=== PATIENT | male | born 1955 | race Caucasian/White ===

== ENCOUNTER 2019-07-01 20:58 | Emergency (ER) | payer MEDICARE, OTHER ==
[~2019-07-01] VITALS: Ht 180.3 cm; Wt 106.8 kg
[~2019-07-01 20:58] MED LIST: ARIP5TAB8 PO; ASPI-1111 PO; CYAN100T3 PO; ESCI10TA PO; FERR-89 PO; MULT-29 PO
[2019-07-01] MEDS ORDERED: ALPR0.5T8 PO (22:05)
[2019-07-01] MEDS ORDERED: LISI-662 PO (22:05)
[2019-07-01] MEDS ORDERED: FAMO20 PO (22:05)
[2019-07-01] MEDS ORDERED: HYDR-1475 PO (22:05)
[2019-07-01] MEDS ORDERED: OXYC10TA59 PO (22:05)
[2019-07-01] MEDS ORDERED: FLUO-191 PO (22:05)
[2019-07-01] MEDS ORDERED: BUPR100 PO (22:05)
[2019-07-01] MEDS ORDERED: TRAZ-252 PO (22:05)
[2019-07-01] MEDS ORDERED: ATOR40TA28 PO (22:05)
[2019-07-01] MEDS ORDERED: FERR-89 PO (22:05)
[2019-07-01] MEDS ORDERED: GABA-531 PO (22:05)
[2019-07-02] MEDS ORDERED: ACETAMINOPHEN 325 MG TABLET PO ONE (00:45)
[2019-07-02 01:00] VITALS: BP 121/70
== END 2019-07-02 02:30 | disposition home or self-care (01) ==
LOC: EMS 20:59
DX: S09.90XA Unspecified injury of head, initial encounter (principal); F32.9 Major depressive disorder, single episode, unspecified; I10 Essential (primary) hypertension; F13.10 Sedative, hypnotic or anxiolytic abuse, uncomplicated; Z90.89 Acquired absence of other organs; Z79.899 Other long term (current) drug therapy; Z79.82 Long term (current) use of aspirin; W01.0XXA Fall on same level from slipping, tripping and stumbling without subsequent striking against object, initial encounter; Y93.89 Activity, other specified; Y92.89 Other specified places as the place of occurrence of the external cause; Y99.8 Other external cause status
CPT/HCPCS: 70450